=== PATIENT | male | born 1990 | race Caucasian/White ===

== ENCOUNTER 2019-02-22 23:33 | Emergency (ER) | payer OTHER ==
[~2019-02-22] VITALS: Ht 185.4 cm; Wt 65.8 kg
[~2019-02-22 23:33] MED LIST: BACTRIM DS TAB1 EACH PO; IBUPROFEN 800800 M1 PO
[2019-02-23 00:54] VITALS: BP 121/91
== END 2019-02-23 00:55 | disposition home or self-care (01) ==
LOC: M.ERS 23:33
DX: N50.812 Left testicular pain (principal)